=== PATIENT | male | born 1960 | race Caucasian/White ===

== ENCOUNTER → 2020-08-16 | Outpatient (CLI) | payer SELFPAY | LOC: MRI 08:43 | PROVIDERS: ATTEND Family Medicine | DX: M25.551 Pain in right hip (principal) ==

== ENCOUNTER → 2020-11-29 | Outpatient (CLI) | payer SELFPAY | LOC: MRI 08:26 | PROVIDERS: ATTEND Family Medicine | DX: M25.511 Pain in right shoulder (principal); M24.9 Joint derangement, unspecified ==

== ENCOUNTER → 2021-10-27 | Outpatient (CLI) | payer SELFPAY | LOC: MRI 07:55 | PROVIDERS: ATTEND Anesthesiology | DX: G89.4 Chronic pain syndrome (principal) | CPT/HCPCS: 72148 ==

== ENCOUNTER → 2024-04-06 | Outpatient (RCR) | payer MEDICARE ==
[~2024-04-06] MED LIST: LIDOCAINE VISC 2% SOLN 15 ML UDC ONE; MINERAL OIL/PETROLAT/GLYCERI 6OZ BTL ONE
[2024-04-06 17:03] LABS: BASOPHILS % 0.3 % (0.0-1.0); EOSINOPHILS # (AUTO) 0.1 (0.0-0.4); EOSINOPHILS % 1.4 % (0.0-6.0); HEMATOCRIT 44.1 % (38.2-49.6); HEMOGLOBIN 13.7 g/dL (14.0-18.0); LYMPHOCYTES # (AUTO) 1.5 (1.0-3.2); LYMPHOCYTES % 17.8 % (18.0-39.1); MEAN CORPUSCULAR HEMOGLOBIN 27.6 pg (28-32); MEAN CORPUSCULAR HGB CONC 31.1 g/dL (31-35); MEAN CORPUSCULAR VOLUME 88.7 fL (81-99); MONOCYTES # (AUTO) 0.8 (0.2-0.8); MONOCYTES % 9.2 % (4.4-11.3); NEUTROPHILS # (AUTO) 6.1 (2.1-6.9); NEUTROPHILS % 71.1 % (38.7-80.0); PLATELET COUNT 271 x10e3/uL (140-360); RED BLOOD COUNT 4.97 x10e6/uL (4.3-5.7); RED CELL DISTRIBUTION WIDTH 18.6 % (11.7-14.4)
[2024-04-06 17:20] LABS: ALBUMIN 3.2 g/dL (3.5-5.0); ALBUMIN/GLOBULIN RATIO 0.9 (0.8-2.0); BILIRUBIN,TOTAL 0.4 mg/dL (0.2-1.2); CALCIUM 9.2 mg/dL (8.4-10.2); CREATININE, SERUM 1.08 mg/dL (0.72-1.25); TOTAL PROTEIN 6.9 g/dL (6.5-8.1)
== END ==
LOC: WCC 03-23 11:52
PROVIDERS: ATTEND Internal Medicine Infectious Disease
DX: S91.301A Unspecified open wound, right foot, initial encounter (principal)
CPT/HCPCS: 36415; 80053; 84134; 85025